=== PATIENT | female | born 1975 | race Two or more races ===

== ENCOUNTER 2023-08-31 16:38 | Emergency (ER) | payer OTHER ==
[~2023-08-31] VITALS: Ht 157.5 cm; Wt 61.7 kg
[2023-08-31] MEDS ORDERED: TRIAMCINOLONE ACETONIDE 40 MG/ML VIAL IM ONE (16:45)
[2023-08-31] MEDS ORDERED: KETOROLAC TROMETHAMINE 60 MG VIAL IM ONE (16:45)
[2023-08-31] MEDS ORDERED: DICLOFENAC SODI75 MG PO (17:12)
== END 2023-08-31 17:27 | disposition home or self-care (01) ==
LOC: ER 16:39
DX: M25.532 Pain in left wrist (principal)

== ENCOUNTER 2024-03-07 11:10 | Emergency (ER) | payer OTHER ==
[~2024-03-07] VITALS: Ht 157.5 cm; Wt 62.1 kg
[~2024-03-07 11:10] MED LIST: DICLOFENAC SODI75 MG PO
[2024-03-07] MEDS ORDERED: KETOROLAC TROMETHAMINE 60 MG VIAL IM ONE ×2 (11:45→12:10)
[2024-03-07] MEDS ORDERED: ORPHENADRINE CITRATE 30 MG/ML AMPUL IM ONE (11:45)
[2024-03-07] MEDS ORDERED: ORPHENADRINE CITRATE 30 MG/ML AMPUL ONE (12:11)
[2024-03-07] MEDS ORDERED: NORFLEX100MG PO (13:17)
[2024-03-07] MEDS ORDERED: KETO10TA2 PO (13:17)
== END 2024-03-07 13:38 | disposition home or self-care (01) ==
LOC: ER 11:12
DX: M25.511 Pain in right shoulder (principal)